=== PATIENT | male | born 1975 | race Caucasian/White ===

== ENCOUNTER 2020-09-09 15:54 | Outpatient (REF) | payer SELFPAY | END 2020-09-09 15:55 | disposition home or self-care (01) | LOC: HO.LNP 15:54 | PROVIDERS: Visit Provider Physician Assistant Medical | DX: Z03.818 Encounter for observation for suspected exposure to other biological agents ruled out (principal) | CPT/HCPCS: 87635 ==

== ENCOUNTER 2022-12-28 14:00 | Emergency (ER) | payer OTHER, SELFPAY ==
--- NOTE | ~2022-12-28 | CT_ITS ---
EXAMINATION: CT ABDOMEN AND PELVIS WITHOUT CONTRAST CLINICAL INFORMATION: Foreign body. COMPARISON: None TECHNIQUE: Multidetector volumetric imaging was performed from the superior aspect of the liver through the pubic symphysis. Sagittal and coronal reformatted images were obtained on the technologist's workstation. This CT examination was performed using dose optimization techniques as appropriate, variously including the following: *Automated exposure control *Adjustment of mA and/or kV according to patient size (this includes techniques or standardized protocols for targeted exams where dose is matched to indication/reason for exam; i.e. extremities or head) *Use of iterative reconstruction technique DLP: 681 mGy-cm FINDINGS: LUNG BASES: The visualized lung bases are unremarkable. LIVER, GALLBLADDER, AND BILIARY TREE: The liver is normal in size, shape, and attenuation. No focal hepatic lesion or biliary ductal dilatation is present. The gallbladder is unremarkable with no evidence of radiopaque gallstones, gallbladder wall thickening, or obvious pericholecystic inflammatory changes. PANCREAS: Unremarkable. SPLEEN: Unremarkable. ADRENAL GLANDS: Unremarkable. KIDNEYS AND URETERS: The kidneys are normal in size, shape, and attenuation. No hydronephrosis, hydroureter, or calculi seen. No perinephric stranding. The calcification left-sided pelvis on image 626/786 series 4 is a phlebolith in nondistended ureter. BLADDER: Bladder partially filled. Diffuse mild thickening of the bladder wall likely due to underdistention of the bladder. No edema around the gallbladder. No bladder calculus or mass. GASTROINTESTINAL TRACT: No acute abnormality. There is no bowel wall thickening /edema. There is no bowel obstruction. There is a moderate to large volume of stool in the colon. The appendix is normal . The small bowel loops are unremarkable. The stomach is normal. There is no hiatal hernia. ABDOMINAL WALL: Surgical clips over the right groin. No recurrent hernia. LYMPH NODES: Normal. VASCULAR: Unremarkable. PELVIC VISCERA: Unremarkable. OSSEOUS STRUCTURES: Multilevel degenerative spondylosis spine. CT/CT abdomen pelvis wo IV con IMPRESSION: No acute abnormality CT scan abdomen pelvis. Surgical clips over the right groin. No recurrent hernia. Fleischner guidelines were followed.
--- NOTE | 2022-12-28 14:05 | ED.GENADULT ---
HPI - General Adult General Chief complaint: General Medical <FAMILIA Marie - Last Filed: 12/28/22 14:10> Stated complaint: Stomach blockage sent from <FAMILAI Marie - Last Filed: 12/28/22 14:10> Time Seen by Provider: 12/28/22 16:18 <FAMILIA Marie - Last Filed: 12/28/22 14:10> Source: patient <Eduarda Gomes NP - Last Filed: 12/28/22 21:37> Mode of arrival: ambulatory <Eduarda Gomes NP - Last Filed: 12/28/22 21:37> Limitations: no limitations <Eduarda Gomes NP - Last Filed: 12/28/22 21:37> History of Present Illness HPI narrative: 47-year-old male presents for urgent care for evaluation for a foreign object that has been in his rectum for 5 months. <Eduarda Gomes NP - Last Filed: 12/28/22 21:37> Radiation: non-radiation <Eduarda Gomes NP - Last Filed: 12/28/22 21:37> Associated symptoms: denies other symptoms <Eduarda Gomes NP - Last Filed: 12/28/22 21:37> Related Data Allergies/adverse reactions: Allergies Allergy/AdvReac Type Severity Reaction Status Date / Time No Known Allergies Allergy Verified 12/28/22 14:08 <FAMILIA Marie - Last Filed: 12/28/22 14:10> Review of Systems Review of Systems: Constitutional: No Fever, No Chills Cardiovascular: No Chest Pain, No SOB Respiratory: No Cough, No Dyspnea Gastrointestinal: No Nausea, No Vomiting, No Diarrhea, No abdominal Pain Genitourinary: No Dysuria, No Hematuria Musculoskeletal: no joint pain, No Myalgias, No Joint Swelling Skin: No Skin lacerations, No rash Neuro: No Weakness, No Numbness, No Paresthesias <Eduarda Gomes NP - Last Filed: 12/28/22 21:37> Yes all other systems are reviewed and are negative <Eduarda Gomes NP - Last Filed: 12/28/22 21:37> PMFSH Past Medical History Attestation statement: The following information was validated with the patient. <Eduarda Gomes NP - Last Filed: 12/28/22 21:37> Source: old records reviewed <Eduarda Gomes NP - Last Filed: 12/28/22 21:37> Social History Social History: Social History Advance Directives: No Advance Directives Information Provided: Yes <FAMILIA Marie - Last Filed: 12/28/22 14:10> Physical Exam ED Vital Signs: Vital Signs - 24 hr 12/28/22 14:08 Temperature 98 F Pulse Rate 90 Respiratory Rate 18 Blood Pressure 146/93 H Pulse Oximetry 98 Oxygen Delivery Method Room Air BMI result Body Mass Index 31.1 <FAMILIA Marie - Last Filed: 12/28/22 14:10> Vital Signs - 24 hr 12/28/22 14:08 Temperature 98 F Pulse Rate 90 Respiratory Rate 18 Blood Pressure 146/93 H Pulse Oximetry 98 Oxygen Delivery Method Room Air BMI result Body Mass Index 31.1 <Eduarda Gomes NP - Last Filed: 12/28/22 21:37> Appearance: Alert. Oriented X3. No acute distress. Eyes: Pupils equal, round and reactive to light. ENT: Pharynx normal. Neck: Normal inspection. Neck supple. CVS: Normal heart rate and rhythm. Pulses normal. Respiratory: No respiratory distress. Breath sounds normal. Abdomen: Soft and nontender. Skin: Skin warm and dry. Normal skin color. Normal skin turgor. Extremities: No lower extremity edema. Gait well-balanced well coordinated. Neuro: No motor deficit. No sensory deficit. Cranial nerves 2 through 12 intact. <Eduarda Gomes NP - Last Filed: 12/28/22 21:37> Course Course Course Narrative: RME performed by Sandee Meadows PA-C. Patient is a 47 year old male presenting to the emergency department with a foreign body in his colon. Patient states that 5 months ago he placed a plug in his rectum, it went inside, and has not come back out. Patient states that over the last few days, he has had a decrease in being able to produce stool. Patient states that the plug had button batteries in place. <FAMILIA Marie Last Filed: 12/28/22 14:10> RME performed by Sandee Meadows PA-C. Patient is a 47 year old male presenting to the emergency department with a foreign body in his colon. Patient states that 5 months ago he placed a plug in his rectum, it went inside, and has not come back out. Patient states that over the last few days, he has had a decrease in being able to produce stool. Patient states that the plug had button batteries in place. 47-year-old male presents for evaluation body that has been in his rectum for about [address] scan completed while patient was in the emergency department waiting room. Labs are unremarkable, CT scan is negative. Patient has no other medical concerns at this time. 16:59 CT scan negative for acute findings. Plan care discharge home. Patient verbalized understanding of and agrees to plan of care discharge home. Verbalized understanding of signs symptoms and getting need for emergent intervention. <Eduarda Gomes NP - Last Filed: 12/28/22 21:37> Medical Decision Making Differential Diagnosis Differential Diagnoses: The differential diagnosis associated with the presentation includes <Eduarda Gomes NP - Last Filed: 12/28/22 21:37> Suspicion of foreign body <Eduarda Gomes NP - Last Filed: 12/28/22 21:37> Lab Data MDM Lab Attestation statement: I reviewed the patient's lab results. <Eduarda Gomes NP - Last Filed: 12/28/22 21:37> Result Diagrams: 12/28/22 14:32 12/28/22 14:32 <FAMILIA Marie - Last Filed: 12/28/22 14:10> Labs: Lab Results 12/28/22 12/28/22 12/28/22 Range/Units 14:32 14:32 14:32 WBC 6.1 (4.8-10.8) X10*3/uL RBC 5.15 (4.60-5.80) X10*6/uL Hgb 15.7 (14.0-18.0) g/dl Hct 46.0 (42.0-52.0) % MCV 89.3 (80.0-98.0) fL MCH 30.5 (27.0-33.0) pg MCHC 34.1 (31.0-36.0) g/dl RDW 12.2 (11.0-16.0) % Plt Count 247 (160-400) X10*3/uL MPV 9.6 (9.4-12.4) fL Immature Gran % (Auto) 0.3 (0.0-0.4) % Neut % (Auto) 74.7 H (45-73) % Lymph % (Auto) 17.7 L (20-40) % Centre % (Auto) 6.7 (2-11) % Eos % (Auto) 0.3 (0-4) % Baso % (Auto) 0.3 (0-2) % Lymph # (Auto) 1.1 L (1.2-4.9) X10*3/uL [place] # (Auto) 0.4 (0.1-1.2) X10*3/uL Eos # (Auto) 0.0 (0.0-0.4) X10*3/uL Baso # (Auto) 0.0 (0.0-0.2) X10*3/uL Abs Immat Gran (auto) 0.02 (0.00-0.03) X10*3/uL Absolute Neuts (auto) 4.5 (2.0-8.3) x10*3/uL Absolute Nucleated RBC 0.000 (0.0-0.012) X10*3/uL Nucleated RBC % (auto) 0.0 (0.0-0.2) /100WBC Sodium 141 (135-145) mmol/L Potassium 4.5 (3.3-5.1) mmol/L Chloride 105 (96-108) mmol/L Carbon Dioxide 25 (22-29) mmol/L Anion Gap 16 (12-20) BUN 11 (9-16) mg/dL Creatinine 0.96 (0.5-1.4) mg/dL Estim Creat Clear Calc 121.3 Estimated GFR > 60 Random Glucose 101 (60-115) mg/dL Calcium 9.9 (8.4-10.2) mg/dL Magnesium 2.4 (1.6-2.6) mg/dL Total Bilirubin 0.9 (0.0-1.0) mg/dL AST 31 (5-37) U/L ALT 41 H (0-40) U/L Alkaline Phosphatase 57 (39-117) U/L Total Protein 7.4 (6.5-8.0) g/dL Albumin 4.8 (3.5-5.0) g/dL [place] < 0.10 L (0.60-1.20) mmol/L <FAMILIA Marie - Last Filed: 12/28/22 14:10> Lab Results 12/28/22 12/28/22 12/28/22 Range/Units 14:32 14:32 14:32 WBC 6.1 (4.8-10.8) X10*3/uL RBC 5.15 (4.60-5.80) X10*6/uL Hgb 15.7 (14.0-18.0) g/dl Hct 46.0 (42.0-52.0) % MCV 89.3 (80.0-98.0) fL MCH 30.5 (27.0-33.0) pg MCHC 34.1 (31.0-36.0) g/dl RDW 12.2 (11.0-16.0) % Plt Count 247 (160-400) X10*3/uL MPV 9.6 (9.4-12.4) fL Immature Gran % (Auto) 0.3 (0.0-0.4) % Neut % (Auto) 74.7 H (45-73) % Lymph % (Auto) 17.7 L (20-40) % Centre % (Auto) 6.7 (2-11) % Eos % (Auto) 0.3 (0-4) % Baso % (Auto) 0.3 (0-2) % Lymph # (Auto) 1.1 L (1.2-4.9) X10*3/uL [place] # (Auto) 0.4 (0.1-1.2) X10*3/uL Eos # (Auto) 0.0 (0.0-0.4) X10*3/uL Baso # (Auto) 0.0 (0.0-0.2) X10*3/uL Abs Immat Gran (auto) 0.02 (0.00-0.03) X10*3/uL Absolute Neuts (auto) 4.5 (2.0-8.3) x10*3/uL Absolute Nucleated RBC 0.000 (0.0-0.012) X10*3/uL Nucleated RBC % (auto) 0.0 (0.0-0.2) /100WBC Sodium 141 (135-145) mmol/L Potassium 4.5 (3.3-5.1) mmol/L Chloride 105 (96-108) mmol/L Carbon Dioxide 25 (22-29) mmol/L Anion Gap 16 (12-20) BUN 11 (9-16) mg/dL Creatinine 0.96 (0.5-1.4) mg/dL Estim Creat Clear Calc 121.3 Estimated GFR > 60 Random Glucose 101 (60-115) mg/dL Calcium 9.9 (8.4-10.2) mg/dL Magnesium 2.4 (1.6-2.6) mg/dL Total Bilirubin 0.9 (0.0-1.0) mg/dL AST 31 (5-37) U/L ALT 41 H (0-40) U/L Alkaline Phosphatase 57 (39-117) U/L Total Protein 7.4 (6.5-8.0) g/dL Albumin 4.8 (3.5-5.0) g/dL [place] < 0.10 L (0.60-1.20) mmol/L <Eduarda Gomes NP - Last Filed: 12/28/22 21:37> Independent Interpretation I performed an independent interpretation of an: CT Scan <Eduarda Gomes NP - Last Filed: 12/28/22 21:37> Radiology Impression Discussion of test interpretation with radiology: I have reviewed the radiologist's reading. <Eduarda Gomes NP - Last Filed: 12/28/22 21:37> Radiologist Impression: EXAMINATION: CT ABDOMEN AND PELVIS WITHOUT CONTRAST? CLINICAL INFORMATION: Foreign body.? COMPARISON: None? TECHNIQUE: Multidetector volumetric imaging was performed from the superior aspect of the liver through the pubic symphysis. Sagittal and coronal reformatted images were obtained on the technologist's workstation.? This CT examination was performed using dose optimization techniques as appropriate, variously including the following: *Automated exposure control *Adjustment of mA and/or kV according to patient size (this includes techniques or standardized protocols for targeted exams where dose is matched to indication/reason for exam; i.e. extremities or head) *Use of iterative reconstruction technique DLP: 681 mGy-cm FINDINGS: LUNG BASES: The visualized lung bases are unremarkable.? LIVER, GALLBLADDER, AND BILIARY TREE: The liver is normal in size, shape, and attenuation. No focal hepatic lesion or biliary ductal dilatation is present. The gallbladder is unremarkable with no evidence of radiopaque gallstones, gallbladder wall thickening, or obvious pericholecystic inflammatory changes.? PANCREAS: Unremarkable.? SPLEEN: Unremarkable.? ADRENAL GLANDS: Unremarkable.? KIDNEYS AND URETERS: The kidneys are normal in size, shape, and attenuation. No hydronephrosis, hydroureter, or calculi seen. No perinephric stranding. The calcification left-sided pelvis on image 626/786 series 4 is a phlebolith in nondistended ureter. BLADDER: Bladder partially filled. Diffuse mild thickening of the bladder wall likely due to underdistention of the bladder. No edema around the gallbladder. No bladder calculus or mass.? GASTROINTESTINAL TRACT: No acute abnormality. There is no bowel wall thickening /edema. There is no bowel obstruction. There is a moderate to large volume of stool in the colon. The appendix is normal . The small bowel loops are unremarkable. The stomach is normal. There is no hiatal hernia.? ABDOMINAL WALL: Surgical clips over the right groin. No recurrent hernia.? LYMPH NODES: Normal. VASCULAR: Unremarkable. PELVIC VISCERA: Unremarkable.? OSSEOUS STRUCTURES: Multilevel degenerative spondylosis spine.? CT/CT abdomen pelvis wo IV con IMPRESSION: No acute abnormality CT scan abdomen pelvis. Surgical clips over the right groin. No recurrent hernia. ? Fleischner guidelines were followed. <Eduarda Gomes NP - Last Filed: 12/28/22 21:37> Discharge Plan Discharge Clinical Impression: Abdominal discomfort <FAMILIA Marie - Last Filed: 12/28/22 14:10> Patient Disposition: Home, Self-Care <FAMILIA Marie - Last Filed: 12/28/22 14:10> Instructions: Abdominal Pain (ED) <FAMILIA Marie - Last Filed: 12/28/22 14:10> Additional Instructions: You were evaluated for abdominal discomfort. CT scan of abdomen pelvis negative for acute findings and foreign body. Thank you for choosing this emergency department for evaluation. Please follow-up with primary care physician as needed. Return to the emergency department for any new, concerning, or worsening symptoms. <FAMILIA Marie - Last Filed: 12/28/22 14:10> Interventions: ED Discharge Assessment Last Done: 12/28/22 17:04 <FAMILIA Marie - Last Filed: 12/28/22 14:10> Discharge Date/Time: 12/28/22 17:05 <FAMILIA Marie - Last Filed: 12/28/22 14:10>
[2022-12-28 14:08] VITALS: BP 146/93; PULSE 90; RESP 18; TEMP 36.6; O2SAT 98; BMI 31.1
[2022-12-28 14:36] LABS: MANUAL DIFF FLAG NO
[2022-12-28 14:39] LABS: Basophils Percent Auto 0.3 % (0-2); Eosinophils Percent Auto 0.3 % (0-4); Hemoglobin 15.7 g/dl (14.0-18.0); Imm Gran Abs Auto 0.02 X10*3/uL (0.00-0.03); Imm Gran Pct Auto 0.3 % (0.0-0.4); Lymphocytes Absolute Auto 1.1 X10*3/uL (1.2-4.9); Lymphocytes Percent Auto 17.7 % (20-40); Mean Corpuscular HGB Conc 34.1 g/dl (31.0-36.0); Mean Corpuscular Hemoglobin 30.5 pg (27.0-33.0); Mean Corpuscular Volume 89.3 fL (80.0-98.0); Mean Platelet Volume 9.6 fL (9.4-12.4); Monocytes Absolute Auto 0.4 X10*3/uL (0.1-1.2); Monocytes Percent Auto 6.7 % (2-11); Neutrophils Absolute Auto 4.5 x10*3/uL (2.0-8.3); Neutrophils Percent Auto 74.7 % (45-73); Platelet Count 247 X10*3/uL (160-400); Red Blood Count 5.15 X10*6/uL (4.60-5.80); Red Cell Distribution Width 12.2 % (11.0-16.0); White Blood Count 6.1 X10*3/uL (4.8-10.8)
[2022-12-28 14:56] LABS: Lithium < 0.10 mmol/L (0.60-1.20)
[2022-12-28 15:01] LABS: Alanine Aminotransferase 41 U/L (0-40); Albumin Level 4.8 g/dL (3.5-5.0); Alkaline Phosphatase 57 U/L (39-117); Anion Gap 16 (12-20); Aspartate Amino Transferase 31 U/L (5-37); Bilirubin Total 0.9 mg/dL (0.0-1.0); Blood Urea Nitrogen 11 mg/dL (9-16); Calcium 9.9 mg/dL (8.4-10.2); Carbon Dioxide 25 mmol/L (22-29); Chloride 105 mmol/L (96-108); Creatinine Clr Calc Pharmacy 121.3; Estimated Glomerular Filt Rate > 60; Glucose Random 101 mg/dL (60-115); Magnesium 2.4 mg/dL (1.6-2.6); Potassium 4.5 mmol/L (3.3-5.1); Sodium 141 mmol/L (135-145); Total Protein 7.4 g/dL (6.5-8.0)
== END 2022-12-28 17:05 | disposition home or self-care (01) ==
PROVIDERS: Physician Assistant Medical; Emergency Provider Emergency Medicine
DX: R10.13 Epigastric pain (principal); Z79.899 Other long term (current) drug therapy
CPT/HCPCS: 36415; 74176; 80053; 80178; 83735; 85025; 99282; 99284

== ENCOUNTER 2023-03-09 09:19 | Outpatient (REF) | payer OTHER, SELFPAY ==
--- NOTE | ~2023-03-09 | XR_ITS ---
EXAMINATION: XR ANKLE, LEFT CLINICAL INFORMATION: Pain COMPARISON: None available. TECHNIQUE: AP, lateral, and mortise views of the left ankle. FINDINGS: The bones and soft tissues are normal. No fracture. Alignment is anatomic. Joint spaces are maintained. No joint effusion. XR/XR ankle LT min 3V IMPRESSION: Normal left ankle.
== END 2023-03-09 09:20 | disposition home or self-care (01) ==
LOC: HO.XRAY 09:19
PROVIDERS: PCP Internal Medicine; Visit Provider Internal Medicine
DX: M21.6X2 Other acquired deformities of left foot (principal)
CPT/HCPCS: 73610

== ENCOUNTER 2023-03-12 12:06 | Emergency (ER) | payer OTHER, SELFPAY ==
--- NOTE | ~2023-03-12 | CT_ITS ---
EXAMINATION: Left ankle and CT brain without contrast. CLINICAL INDICATIONS: Pain. COMPARISON: Left ankle 03/09/2023 TECHNIQUE: Left ankle 4 views. 5 mm thin axial and reformatted 2 mm thin sagittal and coronal images of brain were obtained without contrast. DLP 683. This CT examination was performed using dose optimization technique as appropriate, variously including the following: Automated exposure control Adjustment of MA and/or KV according to patient size(this includes techniques or standardized protocols for targeted exams where dose is matched to indication/reason for exam; extremities or head. Use of iterative reconstruction techniques. FINDINGS: Left ankle: The ankle mortise and subtalar joints are normal. No visible acute fracture, dislocation or subluxation seen. The soft tissues are normal. No abnormality seen along the calcaneal heel and a marker has been placed. Brain: There is no acute intra-axial, extra-axial bleed, masses or midline shift. There is no acute infarction in evolution. There is no edema. The lateral ventricles are symmetrical in size and configuration without enlargement. Bone windows reveal no calvarial abnormality. Bilateral paranasal sinuses and mastoid air cells are well-aerated. CT/CT head/brain wo IV con IMPRESSION: 1. No acute intracranial process seen. 2. Unremarkable left ankle exam. No change from 03/09/2023.
[2023-03-12 12:41] VITALS: BP 138/105; PULSE 89; RESP 16; TEMP 37.3; O2SAT 95; BMI 30.7
--- NOTE | 2023-03-12 12:42 | ED.EXTPRO ---
HPI - Extremity Problem General Chief complaint: Extremity Problem Stated complaint: L arm/leg numbness Time Seen by Provider: 03/12/23 16:32 Related Data Allergies Allergy/AdvReac Type Severity Reaction Status Date / Time No Known Allergies Allergy Verified 12/28/22 14:08 [facility] Social History Social History Alcohol intake: current Alcohol intake frequency: 3 or more drinks per day Alcohol type: beer Smoked in Last 30 Days: No Use of substances other than those prescribed or required for medical reasons: No Advance Directives: No Advance Directives Information Provided: Yes Physical Exam Vital Signs: Vital Signs: Last Vital Signs Temp 98.7 F 03/12/23 17:12 Pulse 76 03/12/23 19:14 Resp 18 03/12/23 19:14 BP 138/99 H 03/12/23 19:14 Pulse Ox 98 03/12/23 19:14 O2 Del Method Room Air 03/12/23 19:14 BMI result Body Mass Index 30.7 Course Course Course Narrative: This is an RME: Additional HPI, ROS, PE not included below will be deferred to primary provider. 48-year-old male presents for evaluation of intermittent numbness and tingling to left left upper extremity, has going on for the past 2 weeks. He tells me sometimes he gets ankle pain radiating up his left leg. However he tells me independently to this sometimes he gets left arm numbness and weakness. This has been going on for the past 2 weeks. Nothing like this has ever happened to him before. Physical exam benign Plan D-dimer, x-ray of the left ankle, brain CT. Medical Decision Making Lab Data 03/12/23 17:30 03/12/23 17:30 Labs: Lab Results 03/12/23 03/12/23 03/12/23 Range/Units 13:09 17:30 17:30 WBC 6.6 (4.8-10.8) X10*3/uL RBC 5.21 (4.60-5.80) X10*6/uL Hgb 15.8 (14.0-18.0) g/dl Hct 46.8 (42.0-52.0) % MCV 89.8 (80.0-98.0) fL MCH 30.3 (27.0-33.0) pg MCHC 33.8 (31.0-36.0) g/dl RDW 12.5 (11.0-16.0) % Plt Count 241 (160-400) X10*3/uL MPV 9.4 (9.4-12.4) fL Immature Gran % (Auto) 0.3 (0.0-0.4) % Neut % (Auto) 54.8 (45-73) % Lymph % (Auto) 35.8 (20-40) % [place] % (Auto) 7.7 (2-11) % Eos % (Auto) 0.9 (0-4) % Baso % (Auto) 0.5 (0-2) % Lymph # (Auto) 2.4 (1.2-4.9) X10*3/uL [place] # (Auto) 0.5 (0.1-1.2) X10*3/uL Eos # (Auto) 0.1 (0.0-0.4) X10*3/uL Baso # (Auto) 0.0 (0.0-0.2) X10*3/uL Abs Immat Gran (auto) 0.02 (0.00-0.03) X10*3/uL Absolute Neuts (auto) 3.6 (2.0-8.3) x10*3/uL Absolute Nucleated RBC 0.000 (0.0-0.012) X10*3/uL Nucleated RBC % (auto) 0.0 (0.0-0.2) /100WBC D-Dimer High Sensitivty < 150 NG/ML Sodium 141 (135-145) mmol/L Potassium 4.1 (3.3-5.1) mmol/L Chloride 107 (96-108) mmol/L Carbon Dioxide 25 (22-29) mmol/L Anion Gap 13 (12-20) BUN 10 (9-16) mg/dL Creatinine 0.95 (0.5-1.4) mg/dL Estim Creat Clear Calc 120.5 Estimated GFR > 60 Random Glucose 104 (60-115) mg/dL Calcium 9.8 (8.4-10.2) mg/dL Magnesium 2.0 (1.6-2.6) mg/dL Total Bilirubin 1.0 (0.0-1.0) mg/dL Direct Bilirubin 0.3 (0.0-0.5) mg/dL AST 25 (5-37) U/L ALT 31 (0-40) U/L Alkaline Phosphatase 52 (39-117) U/L Total Protein 7.2 (6.5-8.0) g/dL Albumin 4.8 (3.5-5.0) g/dL Ethyl Alcohol < 10 mg/dL Discharge Plan Discharge Clinical Impression: Neuropathy Patient Disposition: Home, Self-Care Instructions: Peripheral Neuropathy (ED) Referrals: Skip Vences DO [Primary Care Provider] - 03/14/23 Interventions: ED Discharge Assessment Last Done: 03/12/23 19:32 Discharge Date/Time: 03/12/23 19:32
[2023-03-12 13:55] LABS: D Dimer High Sensitivity < 150 NG/ML
--- NOTE | 2023-03-12 16:54 | ED_ITS ---
HPI - Extremity Problem General Chief complaint: Extremity Problem Stated complaint: L arm/leg numbness Time Seen by Provider: 03/12/23 16:32 History of Present Illness HPI Narrative: Patient is a 48-year-old male with a history of ETOH. Presents today with having tingling sensation in the hands. Sometimes tingling sensation with go to the legs. Patient worried about a blood clot in his left leg. There is no fever no chills. There was no trauma. There is no nausea no vomiting. Chest pain or diaphoresis. Patient feels a pressure in his left ankle to his calf. Worry about circulation being cut off. Patient from home. No Recent travel history. Related Data Allergies Allergy/AdvReac Type Severity Reaction Status Date / Time No Known Allergies Allergy Verified 12/28/22 14:08 Review of Systems Review of Systems: No fever no chills no diaphoresis. No chest pain. Yes all other systems are reviewed and are negative PMFSH Past Medical History Attestation statement: The following information was validated with the patient. Social History Social History Alcohol intake: current Alcohol intake frequency: 3 or more drinks per day Alcohol type: beer Smoked in Last 30 Days: No Use of substances other than those prescribed or required for medical reasons: No Advance Directives: No Advance Directives Information Provided: Yes Physical Exam Vital Signs: Vital Signs: Last Vital Signs Temp 98.7 F 03/12/23 17:12 Pulse 74 03/12/23 17:12 Resp 16 03/12/23 17:12 BP 182/101 H 03/12/23 17:12 Pulse Ox 97 03/12/23 17:12 O2 Del Method Room Air 03/12/23 17:12 BMI result Body Mass Index 30.7 Appearance: Alert. Oriented X3. No acute distress. Eyes: Pupils equal, round and reactive to light. ENT: Pharynx normal. Neck: Normal inspection. Neck supple. No lymph nodes noted. No crepitus CVS: Normal heart rate and rhythm. Pulses normal. Normal S1 and S2 Respiratory: No respiratory distress. Breath sounds normal. No Wheezing. No rales Abdomen: Soft and nontender. No rigidity. No distention. good BS x4 Skin: Skin warm and dry. Normal skin color. Normal skin turgor. Extremities: No lower extremity edema. Neurovascular intact to all extremities. No Lacerations. No Rash. Good pulses to bilateral dorsalis pedis. Calf size are equal bilaterally at the level 10 cm below tibial tuberosity. There is no calf tenderness elicited. There is good sensation over the foot. Ambulates with a normal gait. Patient has good hand grasp. There is no change in color between the 2 hands. There is good sensation over the median radial ulnar nerve bilaterally. There is good strength in bilateral upper extremity. [id number] intact. Neuro: Oriented X 3. No motor deficit. No sensory deficit. Moving all extermities. No slurred speech Medical Decision Making Medical Decision Making [facility] Narrative: Patient's blood pressure in the left ankle was 182/98. Blood pressure in the left arm was 134/93. MENDEL greater than 1. No evidence for ischemia. Patient's D-dimer is negative no evidence for DVT in the setting of low Wells score. Patient admits to drinking alcohol. Has numbness that rotates from the arm to the leg and then back down to the leg. Less likely secondary to CVA as the numbness just some side to side. Patient has no bowel urinary incontinence no evidence for cauda quinine syndrome. X-ray the ankle showed no acute fracture. CT scan of the head was done prior to my examination it was grossly negative for any acute evidence of bleeding. No mass effect. No shift. No fracture. Question neuropathy. Will discharge patient home. Differential Diagnosis Differential Diagnoses: The differential diagnosis associated with the presentation includes Neuropathy, DVT, ischemic foot Admission/Observation Consideration of admission/observation: Escalation of care including admission/observation considered Lab Data [facility] Lab Attestation statement: I reviewed the patient's lab results. 03/12/23 17:30 03/12/23 17:30 Labs: Lab Results 03/12/23 03/12/23 03/12/23 Range/Units 13:09 17:30 17:30 WBC 6.6 (4.8-10.8) X10*3/uL RBC 5.21 (4.60-5.80) X10*6/uL Hgb 15.8 (14.0-18.0) g/dl Hct 46.8 (42.0-52.0) % MCV 89.8 (80.0-98.0) fL MCH 30.3 (27.0-33.0) pg MCHC 33.8 (31.0-36.0) g/dl RDW 12.5 (11.0-16.0) % Plt Count 241 (160-400) X10*3/uL MPV 9.4 (9.4-12.4) fL Immature Gran % (Auto) 0.3 (0.0-0.4) % Neut % (Auto) 54.8 (45-73) % Lymph % (Auto) 35.8 (20-40) % [place] % (Auto) 7.7 (2-11) % Eos % (Auto) 0.9 (0-4) % Baso % (Auto) 0.5 (0-2) % Lymph # (Auto) 2.4 (1.2-4.9) X10*3/uL [place] # (Auto) 0.5 (0.1-1.2) X10*3/uL Eos # (Auto) 0.1 (0.0-0.4) X10*3/uL Baso # (Auto) 0.0 (0.0-0.2) X10*3/uL Abs Immat Gran (auto) 0.02 (0.00-0.03) X10*3/uL Absolute Neuts (auto) 3.6 (2.0-8.3) x10*3/uL Absolute Nucleated RBC 0.000 (0.0-0.012) X10*3/uL Nucleated RBC % (auto) 0.0 (0.0-0.2) /100WBC D-Dimer High Sensitivty < 150 NG/ML Sodium 141 (135-145) mmol/L Potassium 4.1 (3.3-5.1) mmol/L Chloride 107 (96-108) mmol/L Carbon Dioxide 25 (22-29) mmol/L Anion Gap 13 (12-20) BUN 10 (9-16) mg/dL Creatinine 0.95 (0.5-1.4) mg/dL Estim Creat Clear Calc 120.5 Estimated GFR > 60 Random Glucose 104 (60-115) mg/dL Calcium 9.8 (8.4-10.2) mg/dL Magnesium 2.0 (1.6-2.6) mg/dL Total Bilirubin 1.0 (0.0-1.0) mg/dL Direct Bilirubin 0.3 (0.0-0.5) mg/dL AST 25 (5-37) U/L ALT 31 (0-40) U/L Alkaline Phosphatase 52 (39-117) U/L Total Protein 7.2 (6.5-8.0) g/dL Albumin 4.8 (3.5-5.0) g/dL Ethyl Alcohol < 10 mg/dL Independent Interpretation I performed an independent interpretation of an: Plain X-Ray Interpretation: X-ray the ankle showed no acute fracture Radiology Impression Discussion of test interpretation with radiology: I have reviewed the radiologist's reading. Chronic Conditions Patient?s care impacted by: Hypertension Alcohol abuse Social Determinants Patient?s care significantly limited by Social Determinants of Health including: Alcoholism and drug addiction in family Discharge Plan Discharge Clinical Impression: Neuropathy Patient Disposition: Home, Self-Care Instructions: Peripheral Neuropathy (ED) Referrals: Skip Vences DO [Primary Care Provider] - 03/14/23
[2023-03-12 17:11] VITALS: BP 134/93
[2023-03-12 17:12] VITALS: BP 182/101; PULSE 74; RESP 16; TEMP 37.1; O2SAT 97
--- NOTE | 2023-03-12 17:23 | PC.NURSE ---
Pt on stretcher, airway open and patent, no obvious signs of distress, no difficulty breathing. A&ox4, skin normal for ethnicity, warm, and dry. Lung sounds clr and equal bilaterally all sanchez. Heart sounds normal. Bowel sounds present/active all sanchez, abdomen soft, non-tender. Pt complaining of intermittent leg pain, vital signs taken on both left arm and left leg per Doc request. Pedal pulses present, extremity warm.
[2023-03-12 17:34] LABS: MANUAL DIFF FLAG NO
[2023-03-12 17:36] LABS: Basophils Percent Auto 0.5 % (0-2); Eosinophils Absolute Auto 0.1 X10*3/uL (0.0-0.4); Eosinophils Percent Auto 0.9 % (0-4); Hematocrit 46.8 % (42.0-52.0); Hemoglobin 15.8 g/dl (14.0-18.0); Imm Gran Abs Auto 0.02 X10*3/uL (0.00-0.03); Imm Gran Pct Auto 0.3 % (0.0-0.4); Lymphocytes Absolute Auto 2.4 X10*3/uL (1.2-4.9); Lymphocytes Percent Auto 35.8 % (20-40); Mean Corpuscular HGB Conc 33.8 g/dl (31.0-36.0); Mean Corpuscular Hemoglobin 30.3 pg (27.0-33.0); Mean Corpuscular Volume 89.8 fL (80.0-98.0); Mean Platelet Volume 9.4 fL (9.4-12.4); Monocytes Absolute Auto 0.5 X10*3/uL (0.1-1.2); Monocytes Percent Auto 7.7 % (2-11); Neutrophils Absolute Auto 3.6 x10*3/uL (2.0-8.3); Neutrophils Percent Auto 54.8 % (45-73); Platelet Count 241 X10*3/uL (160-400); Red Blood Count 5.21 X10*6/uL (4.60-5.80); Red Cell Distribution Width 12.5 % (11.0-16.0); White Blood Count 6.6 X10*3/uL (4.8-10.8)
[2023-03-12 17:51] LABS: Alanine Aminotransferase 31 U/L (0-40); Albumin Level 4.8 g/dL (3.5-5.0); Alkaline Phosphatase 52 U/L (39-117); Anion Gap 13 (12-20); Aspartate Amino Transferase 25 U/L (5-37); Bilirubin Direct 0.3 mg/dL (0.0-0.5); Blood Urea Nitrogen 10 mg/dL (9-16); Calcium 9.8 mg/dL (8.4-10.2); Carbon Dioxide 25 mmol/L (22-29); Chloride 107 mmol/L (96-108); Creatinine Clr Calc Pharmacy 120.5; Estimated Glomerular Filt Rate > 60; Ethanol < 10 mg/dL; Glucose Random 104 mg/dL (60-115); Potassium 4.1 mmol/L (3.3-5.1); Sodium 141 mmol/L (135-145); Total Protein 7.2 g/dL (6.5-8.0)
[2023-03-12 19:14] VITALS: BP 138/99; PULSE 76; RESP 18; O2SAT 98
--- NOTE | 2023-03-12 19:32 | PC.NURSE ---
skin pwd. pt ambulatory at discharge. pt provided with discharge packet. pt verbalized understanding of discharge plan
== END 2023-03-12 19:32 | disposition home or self-care (01) ==
PROVIDERS: Physician Assistant; Emergency Provider Emergency Medicine Emergency Medical Services; PCP Internal Medicine
DX: G62.9 Polyneuropathy, unspecified (principal); M79.662 Pain in left lower leg; I10 Essential (primary) hypertension; F10.90 Alcohol use, unspecified, uncomplicated; Y90.0 Blood alcohol level of less than 20 mg/100 ml
CPT/HCPCS: 36415; 70450; 73610; 80048; 80076; 82077; 83735; 85025; 85379; 99284

== ENCOUNTER → 2023-05-02 15:27 | Outpatient (BNVA) | payer OTHER, SELFPAY | PROVIDERS: PCP Internal Medicine; Visit Provider Nurse Practitioner ==

== ENCOUNTER 2024-01-10 09:05 | Day surgery (SDC) | payer OTHER, SELFPAY ==
[2024-01-08 09:03] VITALS: BMI 30.1
--- NOTE | 2024-01-09 08:58 | HO.ANESPROP2 ---
Documented by User: Norma Rodrigues NP 01/09/24 08:58 HPI - Anesthesia Eval Consult details Narrative: 49yo M for Colonoscopy [facility] Active Problems Active Problems: All Active Problems (Updated 05/14/23 @ 15:58 by MARY ELLEN Garland) Family history of polyps in the colon (Acute) Pre-op examination (Acute) Heavy alcohol use (Acute) History of testicular cancer (Acute) Migraines (Acute) High cholesterol (Acute) Past Medical History Medical History (Updated 01/10/24 @ 09:41 by Krystin Veliz MD) Asthma Testicular cancer Family History Family History Maternal Grandfather Prostate cancer Surgical History Surgical History History of orchiectomy, unilateral Social History Social History Alcohol intake: current Alcohol intake frequency: 3 or more drinks per day Alcohol type: beer Patient Tobacco Use Status: Former Tobacco user Tobacco use type: Cigarette Years Smoked: 18 Meds Allergies Allergy/AdvReac Type Severity Reaction Status Date / Time No Known Allergies Allergy Verified 01/10/24 09:11 Home Medications Medication Instructions Recorded Confirmed Last Taken Type atorvastatin 10 mg tablet 10 mg PO DAILY 05/02/23 Unknown History sumatriptan succinate 6 mg/0.5 mL 6 mg subcut PRN 05/02/23 Unknown History subcutaneous pen injector Exam Height,Weight and Vital Signs: Height 6 ft Weight 100.698 kg Assessment and Plan Assessment Anesthesia Assessment: Chart Reviewed Documented by User: Krystin Veliz MD 01/10/24 09:46 [facility] Active Problems Active Problems: All Active Problems (Updated 01/10/24 @ 09:00 by Krystin Veliz MD) Family history of polyps in the colon (Acute) Pre-op examination (Acute) Heavy alcohol use (Acute)- 6 beers/day. 2 beers yesterday History of testicular cancer (Acute) Migraines (Acute) High cholesterol (Acute) Denies YVES Past Medical History Medical History (Updated 01/10/24 @ 09:41 by Krystin Veliz MD) Asthma Testicular cancer Family History Family History Maternal Grandfather Prostate cancer Family history of problems with anesthesia: No Surgical History Surgical History History of orchiectomy, unilateral History of Problems with Anesthesia: No Social History Social History Alcohol intake: current Alcohol intake frequency: 3 or more drinks per day Alcohol type: beer Patient Tobacco Use Status: Former Tobacco user Tobacco use type: Cigarette Years Smoked: 18 Meds Allergies Allergy/AdvReac Type Severity Reaction Status Date / Time No Known Allergies Allergy Verified 01/10/24 09:11 Home Medications Medication Instructions Recorded Confirmed Last Taken Type atorvastatin 10 mg tablet 10 mg PO DAILY 05/02/23 Unknown History sumatriptan succinate 6 mg/0.5 mL 6 mg subcut PRN 05/02/23 Unknown History subcutaneous pen injector Exam Height,Weight and Vital Signs: Height 6 ft Weight 100.698 kg Vital Signs Temp Pulse Resp BP Pulse Ox O2 Del Method 01/10/24 09:17 98.1 F 89 16 131/91 H 96 Room Air Airway Mallampati Class: II TM Dist: >3cm Neck ROM: Full Loose/Missing/Broken Teeth: Yes (Broken top right back. Filling fell out. Denies loose or missing teeth) Heart: RRR Lungs: CTAB Assessment and Plan Assessment Anesthesia Assessment: Anesthesia Plan Discussed Final Anesthetic Review Family History of Problems with Anesthesia: No History of Problems with Anesthesia: No NPO: Yes ASA Class: II Final Preanesthetic Review: No Changes in Pt Med Stat, Meds/Allgs Chart Reviewed, Consent Obtained/Reviewed and Anes Risks/Benef Reviewed Patient Risk: Intermediate Procedure Risk: Low Assessment/Block/Sedation in SS: Assess/Block/Sedation-SS Anesthetic Plan Anesthetic Plan: TIVA Disposition: Standard PACU
[2024-01-10 09:17] VITALS: BP 131/91; PULSE 89; RESP 16; TEMP 36.7; O2SAT 96; BMI 31.1
--- NOTE | 2024-01-10 09:21 | MHC.SHP ---
Pre-Procedural Eval Section A - 24 Hr Update-Section A only Date of Service: 01/10/24 The patient is an INPATIENT: No The patient has been examined within 24 hours of the surgical procedure. The History & Physical has been completed within 30 days and I have reviewed it.: No Section B - Complete if H&P > 30 days Chief Complaint: screening, rectal bleeding Relevant Family History (Specify if Yes): No Relevant Social History: Tobacco Use (Former smoker) Present Medications: see Short Stay Collaborative assessment Medical History: Significant History (History of testicular cancer, asthma) History of Previous Operations: Relevant previous surgery/procedure and date(s) (History of orchiectomy, unilateral) Allergies: Allergies Allergy/AdvReac Type Severity Reaction Status Date / Time No Known Allergies Allergy Verified 01/10/24 09:11 Review of Systems Sugical H&P ROS: Negative: Constitution, Cardiovascular, Respiratory and Gastrointestinal Exam Surgical H&P Exam: Normal: Heart, Normal: Lungs, Normal: Extremities and Normal: Abdomen Plan Diagnosis/Plan: Unchanged I have reviewed the history and physical and performed a pertinent physical examination on my patient. No changes have occurred unless specified. Time Spent With Patient Time: Total time managing care of this patient today ____ minutes.
[2024-01-10] MEDS: Lactated Ringers 1,000 ML 100 ML IVCONT (09:29)
--- NOTE | 2024-01-10 09:39 | W.PM.OPN ---
Operative Note Operative Note Date of Service: 01/10/24 Narrative: COLONOSCOPY TILL CECUM WITH SNARE POLYPECTOMY Pre-op diagnosis: Colon cancer screening, rectal bleeding Post-op diagnosis:? Colon polyps, diverticulosis, hemorrhoids Endoscopist:? Jeanne Adkins MD Anesthesia:?MAC Consent: Indications for the procedure and potential complications of bleeding, perforation, reaction to medications and missed diagnosis were discussed with the patient and informed consent was obtained. Instrument: Olympus CF H 190 L variable stiffness adult colonoscope and PCF H 190 L variable stiffness pediatric colonoscope Monitoring: Vital signs and clinical assessment, intermittent blood pressure monitoring, continuous EKG monitoring, Pulse oximetry and Carbon Dioxide monitoring were done throughout the procedure. Please see anesthesia flowsheet. Colon withdrawl time was 45 minutes. Procedure: The patient was placed in the left lateral decubitis position and pre-procedure medications were administered. After a digital rectal examination of the ano-rectum, the video colonoscope was inserted into the rectum and advanced through the colon to the cecum. The colonoscope was slowly withdrawn in a retrograde panoramic fashion and the colon mucosa was carefully examined including a retroflexed view of the rectum. The adult colonoscope was removed udring scope withdrawl due to malfunction (no air) and a pediatric colonoscope was used to complete the procedure. Findings and interventions are described below. Procedure Difficulty: Without difficulty Findings: Terminal Ileum: Not evaluated Cecum: Normal Ascending Colon: Normal Transverse Colon: A 15 - 18 mm sessile polyp - removed with a hot snare. A 10-12 mm sessile polyp - removed with a hot snare Descending Colon: Normal Sigmoid Colon: Moderate diverticulosis Rectum: Normal Ano-rectum: Small internal hemorrhoids Colon preparation: Good after some irrigation [place] Bowel Preparation Scale Right colon; 3 Transverse colon: 3 Left colon; 3 (0 = Unprepared colon segment with mucosa not seen due to solid stool that cannot be cleared. 1 = Portion of mucosa of the colon segment seen, but other areas of the colon segment not well seen due to staining, residual stool and/or opaque liquid. 2 = Minor amount of residual staining, small fragments of stool and/or opaque liquid, but mucosa of colon segment seen well. 3 = Entire mucosa of colon segment seen well with no residual staining, small fragments of stool or opaque liquid) Impression and Post Procedure Diagnosis: Colonoscopy Findings: Two medium sized polyps removed Moderate diverticulosis seen in the sigmoid colon Small hemorrhoids on retroflexed exam. Plan: Await pathology results Patient has an appointment on 01/24/24 in the GI Clinic with Brie Agosto NP. Repeat Colonoscopy interval based on path results - in 3-5 years if polyps are adenomatous and 10 years if polyps are hyperplastic. Above findings were reviewed with the patient and colon polyps and diverticulosis handouts were given in the discharge area
[2024-01-10 10:39] VITALS: BP 133/85; PULSE 96; RESP 18; TEMP 36.1; O2SAT 96
[2024-01-10 10:54] VITALS: BP 121/84; PULSE 79; RESP 16; TEMP 36.1; O2SAT 97
== END 2024-01-10 11:05 | disposition home or self-care (01) ==
PROVIDERS: PCP Internal Medicine; Visit Provider Internal Medicine Gastroenterology
PROC: 0DJD8ZZ Inspection of Lower Intestinal Tract, Via Natural or Artificial Opening Endoscopic (ICD-10-PCS; CPT 45378; principal; 2024-01-10 10:30)
DX: Z12.11 Encounter for screening for malignant neoplasm of colon (principal); D12.3 Benign neoplasm of transverse colon; K57.30 Diverticulosis of large intestine without perforation or abscess without bleeding; K64.8 Other hemorrhoids; Z83.719 Family history of colon polyps, unspecified
CPT/HCPCS: 45385; 88305; J2704

== ENCOUNTER → 2024-01-10 09:05 | Outpatient (BNV) | payer OTHER, SELFPAY | PROVIDERS: PCP Internal Medicine; Visit Provider Internal Medicine Gastroenterology | DX: Z12.11 Encounter for screening for malignant neoplasm of colon (principal); K62.5 Hemorrhage of anus and rectum; D12.3 Benign neoplasm of transverse colon; K57.30 Diverticulosis of large intestine without perforation or abscess without bleeding; K64.8 Other hemorrhoids | CPT/HCPCS: 45385 ==

== ENCOUNTER 2024-01-24 11:54 | Outpatient (AMB) | payer OTHER, SELFPAY ==
--- NOTE | 2024-01-24 11:57 | MHC.OFFVIS ---
Intake Vital Signs 01/24/24 11:58 Height 6 ft Weight 228 lb 13.437 oz BMI 31.0 BP 126/86 Blood Pressure Location Rt brachial Position Sitting Pulse 85 Intake Visit Reasons: S/p colon Intake Note: Rishi returns to office in follow up s/p colonoscopy on 01/10/24. CC: Patient reports that since he woke up from colonoscopy his jaw is hurting from the left side and is swollen. Denies other GI symptoms today. Spray Operator Required: No Accompanied by: Self / Same As Patient Allergies No Known Allergies Allergy (Verified 01/24/24 12:03) HPI S/p colon HPI Details Assessment & Plan (1) Pre-op examination: Code(s): Z01.818 - Encounter for other preprocedural examination Plan: This is his first colonoscopy. He has occasional RB on the TT but no other bowel or upper GI problems. There are no prior problems with anesthesia or sedation. He has some mild asthma r/t environmental allergies (woodstoves), no cardiac problems. Had a recent negative stress test. No ID problems. His sister had polyps removed, no other known FHX. (2) Family history of polyps in the colon: Comment: Sister Code(s): Z83.71 - Family history of colonic polyps Medications: New peg 3350-electroly jacinda 236-22.74-6.74 -5.86 gram (Golyt josh) until feca l effluent is linette r; do not exceed a total volume of 2 ,000 mL 240 mL PO Q10M 4,0 00 mL 0RF 1 day Z12.11 - Encounter for screening for malignant neoplas m of colon COLONOSCOPY 01/10/24 Findings: Terminal Ileum: Not evaluated Cecum: Normal Ascending Colon: Normal Transverse Colon: A 15 - 18 mm sessile polyp - removed with a hot snare. A 10-12 mm sessile polyp - removed with a hot snare Descending Colon: Normal Sigmoid Colon: Moderate diverticulosis Rectum: Normal Ano-rectum: Small internal hemorrhoids Colon preparation: Good after some irrigation Impression and Post Procedure Diagnosis: Colonoscopy Findings: Two medium sized polyps removed Moderate diverticulosis seen in the sigmoid colon Small hemorrhoids on retroflexed exam. Plan: Await pathology results Patient has an appointment on 01/24/24 in the GI Clinic with Brie Agosto NP. Repeat Colonoscopy interval based on path results - in 3-5 years if polyps are adenomatous and 10 years if polyps are hyperplastic. BIOPSY Received: 01/10/24 Diagnosis Colon, transverse, polyps: Tubular adenomas (2 pieces); negative for high-grade dysplasia and carcinoma, and hyperplastic polyp (1 piece) TODAY'S VISIT He is agreeable to a 3 year recall. The procedure was well tolerated. The results were explained and the patient is agreeable to the follow-up interval as stated. The bowel pattern has returned to normal. Education was provided to tell any 1st degree relatives about their findings to be sure that they are screened by age 45. Educated that they will be put on a recall list when it is time for their repeat scope but should they move out of state or away from the hospital they will need to remember along with their primary to repeat the procedure in a timely fashion to avoid any adverse complications. [facility] Medical History Asthma Testicular cancer Surgical History H/O colonoscopy History of orchiectomy, unilateral Family History Maternal Grandfather Prostate cancer Social History Alcohol intake: current Alcohol intake frequency: 3 or more drinks per day Alcohol type: beer Patient Tobacco Use Status: Former Tobacco user Tobacco use type: Cigarette Years Smoked: 18 Review of Systems Const Denies fatigue, Denies fever(s), Denies night sweats, Denies poor appetite and Denies weight loss ENT Reports Normal hearing present, Denies dental pain, Denies dysphagia, Denies hearing loss, Denies mouth pain, Denies odynophagia, Denies throat swelling, Denies tongue swelling and Reports other (Dentition adequate) Card Reports no additional complaints Resp Reports no additional complaints GI Details: Denies abdominal pain, Denies melena, Denies bloating, Denies hematochezia, Denies constipation, Denies GI cramping, Denies dysphagia, Denies excessive flatus, Denies early satiety, Denies heartburn, Denies diarrhea, Denies nausea, Denies odynophagia, Denies vomiting and Denies hematemesis Skin/Breast Denies pruritus, Denies lesions, Denies rash and Denies jaundice Neuro Reports Normal hearing present and Denies Abnormal speech present Endo Denies fatigue Aller/Immun Denies throat swelling and Denies tongue swelling Physical Exam Vital Signs: Last Vital Signs Pulse 85 01/24/24 11:58 BP 126/86 01/24/24 11:58 BMI result Body Mass Index 31.0 Const General: cooperative, no acute distress, well developed and well groomed Nutritional Appearance: well nourished and obese Orientation/consciousness: oriented to person, oriented to place and oriented to time Limitations: No language barrier HEENT Head: Yes normocephalic and Yes atraumatic Eyes General: appearance normal, both eyes and all related structures Pupils: Equal, round and reactive pupils present Neck Neck: Yes normal visual inspection and Yes no lymphadenopathy Thyroid: Thyroid normal Resp Effort & Inspection: normal respiratory effort and able to speak in complete sentences Auscultation: clear to auscultation bilaterally Cardio Rate: regular rate Rhythm: regular rhythm Heart sounds: Normal, physiologic split S2 sound present Peripheral pulses: radial pulses present and posterior tibial pulses present GI Inspection: No distended and No Abdominal panniculus present Palpation (GI): Soft to palpation, nontender, no guarding, not rigid and No hepatosplenomegaly present Percussion: Yes normal to percussion Auscultation: normal bowel sounds Rectal Exam - Male: Yes deferred Skin General skin exam: no rashes or lesions noted, turgor normal, skin not dry, no jaundice, No spider nevi and no striae Rashes: no rashes Nails: normal Neuro General: oriented to person, oriented to place and oriented to time Cranial nerves: Yes Equal, round and reactive pupils present and Yes Normal hearing present Speech: No Abnormal speech present Extrem General: Yes normal to inspection, No clubbing, No cyanosis and No edema Psych Appearance: grossly normal and well kempt Mental Status: mental status grossly normal Speech and movement: Normal speech and movement present Affect: normal affect Attitude: cooperative Thought process: Normal thought process present and not confabulating Thought content: Normal thought content present Insight: Good insight present (Psych) Judgement: Good judgement present (Psych) Assessment & Plan Assessment & Plan (1) Tubular adenoma of colon: Comment: 2023 scope repeat 5 years Code(s): D12.6 - Benign neoplasm of colon, unspecified Plan He is agreeable to a 3 year recall. The procedure was well tolerated. The results were explained and the patient is agreeable to the follow-up interval as stated. The bowel pattern has returned to normal. Education was provided to tell any 1st degree relatives about their findings to be sure that they are screened by age 45. Educated that they will be put on a recall list when it is time for their repeat scope but should they move out of state or away from the hospital they will need to remember along with their primary to repeat the procedure in a timely fashion to avoid any adverse complications. Coding Level of Care Code Est Pt Level 3 (47098) Diagnoses Tubular adenoma of colon D12.6
[2024-01-24 11:58] VITALS: BP 126/86; PULSE 85; BMI 31.0
== END 2024-01-24 12:40 | disposition home or self-care (01) ==
PROVIDERS: PCP Internal Medicine; Visit Provider Nurse Practitioner
DX: D12.6 Benign neoplasm of colon, unspecified (principal)
CPT/HCPCS: 99213

== ENCOUNTER → 2024-01-24 11:54 | Outpatient (BNVA) | payer OTHER, SELFPAY | PROVIDERS: PCP Internal Medicine; Visit Provider Nurse Practitioner ==